=== PATIENT | male | born 1990 | race Caucasian/White ===

== ENCOUNTER 2021-01-24 10:25 | Emergency (ER) | payer SELFPAY ==
[2021-01-24] MEDS ORDERED: Aspirin 81 MG Tab.Chew PO STA (10:39)
--- NOTE | 2021-01-24 10:45 | EDM.PDOC ---
ED HPI GENERAL MEDICAL PROBLEM - General Chief Complaint: Cardiovascular Problem Stated Complaint: CHEST PAIN Time Seen by Provider: 01/24/21 10:30 Source of Information: Reports: Patient History Limitations: Reports: No Limitations - History of Present Illness INITIAL COMMENTS - FREE TEXT/NARRATIVE: Patient presented to the ED because of sudden onset of chest pain, perioral nu mbness and tingling. The pain is radiating to the left arm. denies any nausea,vomiting or dyspnea. Left Chest Pain Score (Numeric/FACES): 5 - Related Data Allergies Allergy/AdvReac Type Severity Reaction Status Date / Time No Known Allergies Allergy Verified 01/24/21 10:34 Home Meds: Home Meds Acetaminophen/Codeine [Tylenol with Codeine No.3 300MG/30MG] 1 tab PO DAILY PRN 01/24/21 [History] hydrOXYzine pamoate [Vistaril] 50 mg PO Q6H PRN #30 cap 01/24/21 [Rx] ED ROS GENERAL - Review of Systems Review Of Systems: See Below Constitutional: Reports: No Symptoms HEENT: Reports: No Symptoms Respiratory: Reports: No Symptoms Cardiovascular: Reports: Chest Pain Endocrine: Reports: No Symptoms GI/Abdominal: Reports: No Symptoms : Reports: No Symptoms Musculoskeletal: Reports: No Symptoms Skin: Reports: No Symptoms Neurological: Reports: No Symptoms Psychiatric: Reports: Anxiety ED EXAM, GENERAL - Physical Exam Exam: See Below Exam Limited By: No Limitations General Appearance: Alert, No Apparent Distress Eye Exam: Bilateral Eye: PERRL Ears: Normal External Exam, Normal Canal Nose: Normal Inspection, Normal Mucosa, No Blood Throat/Mouth: Normal Inspection, Normal Lips, Normal Teeth, Normal Oropharynx, Normal Voice, No Airway Compromise Head: Atraumatic, Normocephalic Neck: Normal Inspection, Supple, Non-Tender, Full Range of Motion Respiratory/Chest: No Respiratory Distress, Lungs Clear, Normal Breath Sounds, No Accessory Muscle Use, Chest Non-Tender Cardiovascular: Normal Peripheral Pulses, Regular Rate, Rhythm, No Edema, No JVD, No Murmur, No Rub GI/Abdominal: Normal Bowel Sounds, Soft, Non-Tender, No Organomegaly, No Distention, No Abnormal Bruit Back Exam: Normal Inspection, Full Range of Motion Extremities: Normal Inspection, Normal Range of Motion, Non-Tender Neurological: Alert, Oriented, CN II-XII Intact, Normal Cognition, Normal Gait, Normal Reflexes, No Motor/Sensory Deficits Psychiatric: Anxious #1 Interpretation EKG Date: 01/24/21 Time: 10:22 Rhythm: NSR Rate (Beats/Min): 60 [place]: Normal P-Wave: Present QRS: Normal ST-T: Normal QT: Normal AK/PQ Interval: 185 Comparison: NA - No Prior EKG EKG Interpretation Comments: NSR ST elevation-due to early repolarization Course - Vital Signs Text/Narrative:: Lab/EKG result was reviewed and discussed with patient ASA 324 mg PO x1 Ativan 1 mg IM x1 Last Recorded V/S: Last Vital Signs Temp 36.8 C 01/24/21 10:26 Pulse 63 01/24/21 10:26 Resp 20 01/24/21 10:26 BP 147/99 H 01/24/21 10:26 Pulse Ox 99 01/24/21 10:26 - Orders/Labs/Meds Orders: Active Orders 24 hr Category Date Time Status EKG 12 Lead [EK] Routine Ther 01/24/21 10:38 Ordered Labs: Laboratory Tests 01/24/21 01/24/21 01/24/21 Range/Units 11:04 11:04 11:04 WBC 6.6 (3.2-10.1) x10-3/uL RBC 4.77 (3.90-5.90) x10(6)uL Hgb 14.8 (12.9-17.7) g/dL Hct 43.2 (38.3-50.1) % MCV 90.7 (80.8-98.7) fL MCH 31.0 (27.0-33.3) pg MCHC 34.2 (28.7-35.3) g/dL RDW 12.8 (12.4-15.0) % Plt Count 200 (117-477) x10(3)uL MPV 9.7 (6.7-11.0) fL Neut % (Auto) 43.5 (40.3-71.8) % Lymph % (Auto) 45.7 H (15.8-45.3) % [place] % (Auto) 7.6 (5.5-15.2) % Eos % (Auto) 2.9 (0.1-6.8) % Baso % (Auto) 0.3 (0.3-3.8) % Neut # (Auto) 2.9 (1.7-6.9) x10-3/uL Lymph # (Auto) 3.0 (0.5-4.5) x10-3/uL [place] # (Auto) 0.5 (0.0-1.2) x10-3/uL Eos # (Auto) 0.2 (0.0-0.6) x10-3/uL Baso # (Auto) 0.0 (0.0-0.3) x10-3/uL Sodium 137 (135-145) mmol/L Potassium 4.3 (3.5-5.3) mmol/L Chloride 100 (100-110) mmol/L Carbon Dioxide 28 (21-32) mmol/L BUN 14 (7-18) mg/dL Creatinine 1.1 (0.70-1.30) mg/dL Est Cr Clr Drug Dosing 109.74 mL/min Estimated GFR (MDRD) > 60 (>60) BUN/Creatinine Ratio 12.7 (9-20) Glucose 97 (80-116) mg/dL Calcium 8.9 (8.6-10.2) mg/dL Total Bilirubin 0.4 (0.1-1.3) mg/dL AST 24 (5-25) IU/L ALT 49 H (12-36) U/L Alkaline Phosphatase 78 (56-112) IU/L Troponin I 4.6 (4.0-60.3) pg/mL Total Protein 7.2 (6.0-8.0) g/dL Albumin 3.8 (3.5-5.2) g/dL Globulin 3.4 g/dL Albumin/Globulin Ratio 1.1 Meds: Medications Discontinued Medications Generic Name Dose Route Start Last Admin Trade Name Freq PRN Reason Stop Dose Admin Aspirin 324 mg 01/24/21 10:39 01/24/21 10:40 Aspirin 81 Mg Tab.Chew PO 01/24/21 10:40 324 mg NOW STA Administration Lorazepam 1 mg 01/24/21 10:57 01/24/21 11:20 Lorazepam 2 Mg/Ml Sdv IM 01/24/21 10:58 1 mg NOW STA Administration Departure - Departure Time of Disposition: 11:30 Disposition: Home, Self-Care 01 Condition: Good Clinical Impression: Atypical chest pain, Anxiety attack Prescriptions: hydrOXYzine pamoate [Vistaril] 50 mg PO Q6H PRN #30 cap PRN Reason: Anxiety Instructions: Nonspecific Chest Pain, Adult, [id number], Managing Anxiety, Adult Referrals: PCP,None [Primary Care Provider] - Forms: ED Department Discharge Additional Instructions: Please read discharge instructions on anxiety attack Take vistaril/hydroxyzine 50 mg every 6 hours as needed for anxiety attack Follow up with your doctor for a maintenance medication for your anxiety Sepsis Event Note (ED) - Evaluation Sepsis Screening Result: No Definite Risk - My Orders Last 24 Hours: My Active Orders 01/24/21 10:38 EKG 12 Lead [EK] Routine - Assessment/Plan Last 24 Hours: My Active Orders 01/24/21 10:38 EKG 12 Lead [EK] Routine
[2021-01-24] MEDS ORDERED: LORazepam 2 MG/ML SDV IM STA (10:57)
== END 2021-01-24 11:38 | disposition home or self-care (01) ==
LOC: FB.ED 10:25
DX: R07.89 Other chest pain (principal); F41.9 Anxiety disorder, unspecified
CPT/HCPCS: 36415; 80053; 84484; 85025; 93005; 96372; 99285; A9270; J2060